=== PATIENT | female | born 1970 | race Caucasian/White ===

== ENCOUNTER 2016-07-23 14:56 | Emergency (ER) ==
--- NOTE | 2016-07-23 16:35 | PROVIDER DOCUMENTATION ---
HPI-General Adult - General Chief Complaint: Seizure Stated Complaint: "POSS TOXIC" Time Seen by Provider: 07/23/16 16:13 Source: patient Allergies/Adverse Reactions: Patient Allergies Allergy/AdvReac Type Severity Reaction Status Date / Time ketorolac tromethamine * Allergy Mild RASH Verified 07/23/16 19:47 [From Toradol] meperidine HCl * Allergy ITCHING Verified 07/23/16 19:47 [From Demerol] prochlorperazine Allergy Unknown Verified 07/23/16 19:47 [From Compazine] prochlorperazine edisylate * Allergy ITCHING Verified 07/23/16 19:47 [From Compazine] prochlorperazine maleate * Allergy ITCHING Verified 07/23/16 19:47 [From Compazine] Sulfa (Sulfonamide Allergy HIVES Verified 07/23/16 19:47 Antibiotics) [Sulfa(Sulfonamide Antibiotics)] Home Medications: Home Medication List Medication Instructions Recorded Confirmed Last Taken Type Alprazolam [Xanax] 1 mg PO TID 10/13/12 07/23/16 07/23/16 History Hydrocodone/Acetaminophen [[place] 1 each PO TID 01/27/16 07/23/16 07/23/16 History 10-325 Tablet] Gabapentin [Neurontin] 600 mg PO BID 07/23/16 07/23/16 Unknown History [place] Carbonate 300 mg PO BID 07/23/16 07/23/16 Unknown History Nitrofurantoin Monohyd/M-Cryst 100 mg PO BID #14 capsule 07/23/16 Unknown Rx [Macrobid 100 mg Capsule] Quetiapine Fumarate [Seroquel] 200 mg PO HS 07/23/16 07/23/16 Unknown History Ziprasidone [Geodon] 80 mg PO BID 07/23/16 07/23/16 Unknown History - History of Present Illness -Gen Adult Nature of Presenting Problems: 45 y/o WF c hx of seizures and psychiatric history, c/o "being toxic from medications." Apparently sent here by therapist Talia Rider. States the therapist thought she was toxic secondary to "being out of it" and having increased seizure like activity. States the seizures are all different, but she has jerking movements, arching her back, falling in the shower and hitting head against the head board. states the seizure activity increased on Saturday when she had a seizure medication filled, Neurontin and [place] last week. states she then had Geodon filled on Tuesdays. Review of Systems - Adult - REVIEW OF SYSTEMS - ADULT Constitutional: reports: no symptoms reported. denies: chills, fever, fatique Eyes: reports: no symptoms reported. denies: decreased vision, blurred vision, double vision, eye pain Ears, Nose, Mouth & Throat: reports: no symptoms reported. denies: ear pain, nose pain, throat pain Cardiovascular: reports: no symptoms reported. denies: chest pain, palpitations Respiratory: reports: no symptoms reported. denies: cough, shortness of breath , wheezing Gastrointestinal: reports: no symptoms reported. denies: abdominal pain, diarrhea, nausea, vomiting Genitourinary: reports: no symptoms reported. denies: dysuria, discharge, frequency, incontinence Musculoskeletal: reports: see HPI, muscle aches. denies: bone pain, back pain, joint pain, neck pain Integumentary: reports: no symptoms reported. denies: rash Neurological: reports: no symptoms reported, dizziness/vertigo, headache/ migraines Psychiatric: reports: no symptoms reported Endocrine: reports: no symptoms reported Hematologic/Lymphatic: reports: no symptoms reported Allergic/Immunologic: reports: no symptoms reported All Other Systems: Reviewed and Negative Past History - Adult - PAST MEDICAL HISTORY-ADULT Review of Records: reports: Old Records Reviewed, Nursing Assessment Review, Medications Reviewed Major Childhood Illnesses: reports: denies history Cardiovascular: reports: denies history Respiratory: reports: denies history Gastrointestinal: reports: denies history Obstetrical/Gynecological: reports: denies history Genitourinary: reports: denies history Musculoskeletal: reports: arthritis Neurological: reports: headaches/migraines, Seizures/Epilepsy Psychiatric: reports: anxiety, bipolar, depression Endocrine/Immune: reports: denies history Other Conditions: reports: MRSA (bld September 2012) - PRIOR SURGERIES/PROCEDURES Surgical/Procedure History: reports: hysterectomy, BTL, tonsillectomy, other, appendectomy - PRIOR HOSPITALIZATIONS Prior Hospitalizations: reports: none - IMMUNIZATION STATUS Childhood Immunizations: See Nurse Assessment Flu Vaccine: See Nurse Assessment - FAMILY HISTORY Family History: reviewed, not pertinent Physical Exam-General - PHYSICAL EXAM-ADULT Initial Vital Signs Reviewed: Yes - CONSTITUTIONAL General Appearance: appears well, alert, no apparent distress - EYES Eyes: PERRL/EOMI, pink conjunctivae - HEAD, EARS, NOSE, MOUTH & THROAT HENMT: normocephalic/atraumatic, moist mucous membranes, normal ENT inspection, TMs normal, pharynx normal - NECK Neck: non-tender, full range of motion, supple, normal inspection. negative: lymphadenopathy - RESPIRATORY Respiratory: chest non-tender, lungs clear, normal breath sounds, no pleuratic chest pain, no respiratory distress, no accessory muscle use. negative: respiratory distress, decreased breath sounds, accessory muscle use, crackles, rales, rhonchi, wheezing - CARDIOVASCULAR Cardiovascular: normal peripheral pulses, regular rate, rhythm - MUSCULOSKELETAL Extremity: normal gait Peripheral Pulses: radial (R): 2+, radial (L): 2+ - SKIN Integumentary: normal color, normal turgor, warm/dry - NEUROLOGIC Neurologic: resource conservation manager II-XII nml as tested, no motor/sensory deficits - PSYCHIATRIC Psych/Mental Status: normal mood/affect, normal thought content, normal thought process, oriented x 3 Progress - PLAN OF CARE/RESULTS Progress/Plan/Lab Results: Vital Signs Temp Pulse Resp BP Pulse Ox 07/23/16 15:02 98.6 F 87 18 125/85 97 ketorolac tromethamine * [From Toradol] Allergy (Mild, Verified 07/23/16 19:47) RASH meperidine HCl * [From Demerol] Allergy (Verified 07/23/16 19:47) ITCHING prochlorperazine [From Compazine] Allergy (Verified 07/23/16 19:47) Unknown prochlorperazine edisylate * [From Compazine] Allergy (Verified 07/23/16 19:47) ITCHING prochlorperazine maleate * [From Compazine] Allergy (Verified 07/23/16 19:47) ITCHING Sulfa (Sulfonamide Antibiotics) [Sulfa(Sulfonamide Antibiotics)] Allergy ( Verified 07/23/16 19:47) HIVES Alprazolam [Xanax] 1 mg PO TID 10/13/12 Hydrocodone/Acetaminophen [[place] 10-325 Tablet] 1 each PO TID 01/27/16 Gabapentin [Neurontin] 600 mg PO BID 07/23/16 [place] Carbonate 300 mg PO BID 07/23/16 Quetiapine Fumarate [Seroquel] 200 mg PO HS 07/23/16 Ziprasidone [Geodon] 80 mg PO BID 07/23/16 I&O 07/22/16 07/23/16 07/24/16 06:59 06:59 06:59 Output Total 40 Balance -40 Laboratory 07/23/16 07/23/16 07/23/16 20:07 18:10 18:10 WBC RBC Hgb Hct MCV MCH MCHC RDW Std Deviation Plt Count MPV Immature Gran % (Auto) Neut % (Auto) Lymph % (Auto) [place] % (Auto) Eos % (Auto) Baso % (Auto) Immature Gran # (Auto) Neut # (Auto) Lymph # (Auto) [place] # (Auto) Eos # (Auto) Baso # (Auto) Sodium 144 Potassium 3.8 Chloride 105 Carbon Dioxide 28 Anion Gap 11 BUN 7 L Creatinine 0.8 Estimated GFR/1.73 m2 > 60 BUN/Creatinine Ratio 9 Glucose 56 L Calculated Osmolality 282 Calcium 9.4 Total Bilirubin 0.38 AST 31 H ALT 30 Alkaline Phosphatase 71 Creatine Kinase 714 H Total Protein 7.1 Albumin 3.7 Globulin 3.4 Albumin/Globulin Ratio 1.1 Urine Source CLEAN CATCH Urine Color ORANGE Urine Turbidity HAZY Urine pH 6.0 Ur Specific [place] 1.019 Urine Protein TRACE A Ur Glucose (Stick) NEGATIVE Ur Ketones (Stick) NEGATIVE Urine Blood TRACE A Urine Nitrite POSITIVE A Urine Bilirubin NEGATIVE Urobilinogen Dipstick NORMAL Urine Leukocytes LARGE A Urine WBC (Auto) TNTC A Urine RBC (Auto) <10 U Epithel Cells (Auto) <10 Urine Bacteria (Auto) 4+ [place] 1.10 07/23/16 18:10 WBC 8.36 RBC 4.84 Hgb 13.5 Hct 41.9 MCV 86.6 MCH 27.9 MCHC 32.2 L RDW Std Deviation 14.6 H Plt Count 231 MPV 11.3 H Immature Gran % (Auto) 0.0 Neut % (Auto) 54.7 Lymph % (Auto) 32.4 [place] % (Auto) 7.3 Eos % (Auto) 5.4 Baso % (Auto) 0.2 Immature Gran # (Auto) 0.00 Neut # (Auto) 4.57 Lymph # (Auto) 2.71 [place] # (Auto) 0.61 H Eos # (Auto) 0.45 Baso # (Auto) 0.02 Sodium Potassium Chloride Carbon Dioxide Anion Gap BUN Creatinine Estimated GFR/1.73 m2 BUN/Creatinine Ratio Glucose Calculated Osmolality Calcium Total Bilirubin AST ALT Alkaline Phosphatase Creatine Kinase Total Protein Albumin Globulin Albumin/Globulin Ratio Urine Source Urine Color Urine Turbidity Urine pH Ur Specific [place] Urine Protein Ur Glucose (Stick) Ur Ketones (Stick) Urine Blood Urine Nitrite Urine Bilirubin Urobilinogen Dipstick Urine Leukocytes Urine WBC (Auto) Urine RBC (Auto) U Epithel Cells (Auto) Urine Bacteria (Auto) [place] Orders Category Date Time Status Saline Loc NOW Care 07/23/16 16:33 Active HEAD W/O CONTRAST [CT] Stat Exams 07/23/16 16:35 Draft CBC WITH ELECTRONIC DIFF [HEME] Stat Lab 07/23/16 18:10 Completed CK TOTAL [CHEM] Stat Lab 07/23/16 18:10 Completed COMPREHENSIVE METABOLIC PANEL [CHEM] Stat Lab 07/23/16 18:10 Completed LITHIUM [TDM] Stat Lab 07/23/16 18:10 Completed UDS [URINE DRUG SCREEN] Stat Lab 07/23/16 20:11 Received URINALYSIS W/POSS RFLX CULT [URINALYSIS] Stat Lab 07/23/16 20:07 Completed URINE CULTURE [RM] Routine Lab 07/23/16 20:33 Received 0.9% Sodium Chloride Inj [Ns] 1,000 ml Med 07/23/16 19:18 Discontinued IV 999 mls/hr CefTRIAXONE 1 GM/NS [Rocephin 1 gm/Ns] 50 ml Med 07/23/16 20:35 Active IV NOW Lorazepam [Ativan] Med 07/23/16 20:21 Discontinued 1 mg IV NOW ONE - CT/MRI 1 CT Study: Head Impression: Normal (NAD per Dr. Daniel, radiology) Departure - Departure Time of Disposition Order: 20:35 DIAGNOSIS: Seizure-like activity, Acute UTI Disposition: HOME 01 Certified Medical Emergency: Emergent Condition: Stable Additional Instructions: Follow up with your primary care physician ED Follow Up Instructions: You have been treated by a care provider in the Emergency Department. These instructions are being provided to you so you can have an understanding of how to care for yourself upon discharge. Upon discharge from the Emergency Department, you are responsible for making arrangements for follow-up care by a physician of your choice. Take all prescribed medications as directed. Return to the Emergency Department immediately for any new or worsening symptoms. You may call the Physician Referral phone number at [phone] to obtain a list of Physicians who are taking new patients. Prescriptions: Nitrofurantoin Monohyd/M-Cryst [Macrobid 100 mg Capsule] 100 mg PO BID #14 capsule Referrals: Lewis Neal [Primary Care Provider] - Instructions: Urinary Tract Infection, [id number], Seizure, Adult, Easy-to- Read Attestation - Physician/ LINDSEY Attestation Patient care was provided by Advanced Practice Provider:: Yes Advanced Practice Provider:: Marie Calderón Advanced Practice Provider documentation review:: The Mid-level provider documentation, treatment plan and medical decision making was reviewed by the physician who agrees with all treatment and medical decision making by the MLP.
[2016-07-23 18:23] LABS: MANUAL DIFF NEEDED? NO
[2016-07-23 18:29] LABS: BASO% 0.2 % (0.0-0.8); EOS# 0.45 X1000 (0.0-0.7); EOS% 5.4 % (0.0-10.0); HEMATOCRIT 41.9 % (37.0-47.0); HEMOGLOBIN 13.5 g/dL (12.0-16.0); LYMPH# 2.71 X1000 (1.2-3.4); LYMPH% 32.4 % (20.5-51.1); MCH 27.9 PG (27-31); MCHC 32.2 g/dL (33-37); MCV 86.6 FL (81-99); MONO# 0.61 X1000 (0.11-0.59); MONO% 7.3 % (1.7-9.3); MPV 11.3 FL (7.4-10.4); NEUT% 54.7 % (42.2-75.2); PLT 231 X1000 (130-400); RBC 4.84 XMIL (4.2-5.4)
[2016-07-23 18:46] LABS: AGAP 11; ALBUMIN 3.7 g/dL (3.5-5.0); ALKALINE PHOSPHATASE 71 U/L (32-104); BUN 7 mg/dL (8-22); CALCIUM 9.4 mg/dL (8.8-10.2); CHLORIDE 105 mmol/L (98-107); COSMO 282; GOT 31 U/L (10-30); GPT 30 U/L (10-36); POTASSIUM 3.8 mmol/L (3.5-5.1); SODIUM 144 mmol/L (136-145); TCO2 28 mmol/L (25-35); TOTAL BILIRUBIN 0.38 mg/dL (0.20-1.00); TOTAL PROTEIN 7.1 g/dL (6.3-8.3)
[2016-07-23] MEDS ORDERED: NS 1,000 ML IV ONE (19:18)
[2016-07-23 20:16] LABS: URINE MICRO REVIEW NEEDED? NO; URINE SOURCE CLEAN CATCH
[2016-07-23] MEDS ORDERED: ATIVAN IV ONE (20:21)
--- NOTE | 2016-07-23 20:23 | Diag Imaging Result Document ---
PROCEDURE NAME: HEAD W/O CONTRAST - 07/23/2016 CT BRAIN WITHOUT CONTRAST COMPARISON: 01/25/15. FINDINGS: No parenchymal hemorrhage. No epidural or subdural hematoma. No subarachnoid hemorrhage. No mass identified on this noncontrasted exam. No hydrocephalus. There is prominent mucosal thickening in the maxillary sinuses with moderate mucosal thickening in the right sphenoid sinus and both ethmoid sinuses. There is mild to moderate mucosal thickening in the left frontal sinus. IMPRESSION: 1. No hemorrhage. Negative brain CT without contrast. 2. Sinusitis. A preliminary report was given at 5:56 p.m.
[2016-07-23 20:25] LABS: BILIRUBIN URINE NEGATIVE (NEGATIVE); BLOOD URINE TRACE (NEGATIVE); COLOR ORANGE; GLUCOSE URINE NEGATIVE (NEGATIVE); LEUKOCYTES URINE LARGE (NEGATIVE); NITRITE URINE POSITIVE (NEGATIVE); PROTEIN URINE TRACE mg/dL (NEGATIVE); SP GRAVITY URINE 1.019; TURBIDITY URINE HAZY (CLEAR); UROBILINOGEN URINE NORMAL (NORMAL)
[2016-07-23 20:28] LABS: UR EPITHELIAL CELLS <10 /HPF (<10); URINE BACTERIA 4+ /HPF; URINE CULTURE NEEDED? YES; URINE RBC <10 /HPF (<10); URINE WBC TNTC /HPF (<10)
[2016-07-23] MEDS ORDERED: ROCEPHIN 1 GM/NS 50 ML IV ONE (20:35)
[2016-07-23 20:44] LABS: UR AMPHETAMINES QUAL PRESUMPTIVE POSITIVE (NONE DETECT); UR BARBITUATES QUAL NONE DETECTED (NONE DETECT); UR BENZODIAZEPIN QUAL PRESUMPTIVE POSITIVE (NONE DETECT); UR CANNABINOIDS QUAL NONE DETECTED (NONE DETECT); UR COCAINE QUAL NONE DETECTED (NONE DETECT); UR METHADONE QUAL NONE DETECTED (NONE DETECT); UR OPIATES QUAL NONE DETECTED (NONE DETECT); UR OXYCODONE QUAL NONE DETECTED (NONE DETECT); UR PCP QUAL NONE DETECTED (NONE DETECT)
[2016-07-23 20:51] VITALS: BP 132/67
[2016-07-23] MEDS ORDERED: ULTRAM PO ONE (21:13)
== END 2016-07-23 21:35 | disposition home or self-care (01) ==
LOC: ED 14:56
DX: N39.0 Urinary tract infection, site not specified (principal); G25.89 Other specified extrapyramidal and movement disorders; M79.1 Myalgia; R42 Dizziness and giddiness; R51 Headache; J32.9 Chronic sinusitis, unspecified; M19.90 Unspecified osteoarthritis, unspecified site; R56.9 Unspecified convulsions; F41.9 Anxiety disorder, unspecified; F32.9 Major depressive disorder, single episode, unspecified; F31.9 Bipolar disorder, unspecified; Z79.899 Other long term (current) drug therapy; Z86.14 Personal history of Methicillin resistant Staphylococcus aureus infection; W18.2XXA Fall in (into) shower or empty bathtub, initial encounter; W22.8XXA Striking against or struck by other objects, initial encounter
CPT/HCPCS: 70450; 80053; 80178; 81001; 82550; 85025; 87077; 87088; G0480; J0696; J2060; J7030; 80324; 80345; 80346; 80349; 80353; 80358; 80361; 80365; 83992